=== PATIENT | female | born 1960 | race Two or more races ===

== ENCOUNTER 2021-09-03 07:46 | Emergency (ER) | payer OTHER ==
[~2021-09-03] VITALS: Ht 157.5 cm; Wt 83.9 kg
[2021-09-03] MEDS ORDERED: LOSARTAN-HCTZ1 EAC2 PO (07:54)
[2021-09-03] MEDS ORDERED: NORVASC5 MG PO (07:54)
[2021-09-03] MEDS ORDERED: KETO10TA2 PO (12:20)
== END 2021-09-03 12:29 | disposition home or self-care (01) ==
LOC: ER 07:46
DX: R10.9 Unspecified abdominal pain (principal); I10 Essential (primary) hypertension